=== PATIENT | male | born 1970 | race American Indian/Alaskan Native ===

== ENCOUNTER 2017-02-19 13:22 | Emergency (ER) | payer OTHER ==
[2017-02-19 15:01] LABS: Basophils % (Auto) 0.6 % (0.0-1.8); Eosinophils % (Auto) 4.1 % (0.0-4.3); Hemoglobin 13.6 gm/dl (11.8-15.2); Mean Corpuscular HGB Conc 33 % (32-34); Mean Corpuscular Hemoglobin 29 pg (28-32); Mean Corpuscular Volume 89 fl (84-94); Platelet Count 356 K/mm3 (140-440); Red Blood Count 4.73 M/mm3 (3.65-5.03); Red Cell Distribution Width 14.2 % (13.2-15.2); White Blood Count 10.2 K/mm3 (4.5-11.0)
[2017-02-19 15:29] LABS: Anion Gap 16 mmol/L; BUN/Creatinine Ratio 12; Blood Urea Nitrogen 14 mg/dL (9-20); Carbon Dioxide 23 mmol/L (22-30); Chloride 104.7 mmol/L (98-107); Glucose 114 mg/dL (75-100); Potassium 3.9 mmol/L (3.6-5.0); Sodium 140 mmol/L (137-145)
[2017-02-20] MEDS ORDERED: TORADOL IM ONE (00:54)
[2017-02-20] MEDS ORDERED: NEURONTIN PO ONE (01:09)
[2017-02-20] MEDS ORDERED: ULTRAM PO ONE (01:14)
--- NOTE | 2017-02-20 02:09 | Emergency Department Report ---
ED Extremity Problem HPI - General Chief complaint: Chest Pain Stated complaint: arm pain Time Seen by Provider: 02/20/17 00:43 Source: patient Mode of arrival: Ambulatory Limitations: No Limitations - History of Present Illness Initial comments: 46-year-old with a past medical history of hypertension (medication noncompliance) presents to the hospital complaints of right arm tingling sensation 4-5 days. Pain is constant and rated 8/10 intensity, worse when lying supine and movement in certain positions. Patient states it feels like pins and needles like his arm fell asleep. He also complains of pain/disc to his right upper lateral pectoralis muscle and right side of his neck/trapezius. Symptoms worse with movement. No recent trauma reported. Patient denies shortness of breath, calf pain, or edema. Difficulty sleeping secondary to discomfort. No weakness reported. Pt does perform overhead lifting activities at work Severity scale (0 -10): 8 - Related Data Previous Rx's Medication Instructions Recorded Last Taken Type Amlodipine Besylate [Norvasc] 5 mg PO DAILY #30 tablet 02/20/17 Unknown Rx Gabapentin [Neurontin] 300 mg PO Q8HR #90 capsule 02/20/17 Unknown Rx Ibuprofen [Motrin] 800 mg PO Q8HR PRN #30 tablet 02/20/17 Unknown Rx traMADol [Ultram 50 MG tab] 50 mg PO Q6HR PRN #20 tablet 02/20/17 Unknown Rx Allergies Allergy/AdvReac Type Severity Reaction Status Date / Time No Known Allergies Allergy Unverified 02/19/17 14:24 ED Review of Systems ROS: Stated complaint: ABDOMINAL PAIN Other details as noted in HPI Comment: All other systems reviewed and negative Other: Constitutional: No fevers chills Eyes: No eye pain visual changes ENT: No ear pain or throat pain Neck: As per HPI Respiratory: Denies cough wheezing shortness of breath Cardiovascular: Denies chest pain, palpitations, syncope GI: Denies abdominal pain, nausea, vomiting, diarrhea : Denies dysuria, urinary frequency, or urgency Musculoskeletal: Denies back pain Skin: Denies rash, lesions, erythema Neurologic: Denies headache, weakness Psychiatric: Denies suicidal ideation, hallucinations ED Past Medical Hx - Past Medical History Hx Hypertension: Yes - Surgical History Past Surgical History?: Yes Additional Surgical History: Arm nerve repair, hernia repair, skin graft - Social History Smoking Status: Never Smoker Substance Use Type: None - Medications Home Medications: Home Medications Medication Instructions Recorded Confirmed Last Taken Type Amlodipine Besylate [Norvasc] 5 mg PO DAILY #30 tablet 02/20/17 Unknown Rx Gabapentin [Neurontin] 300 mg PO Q8HR #90 capsule 02/20/17 Unknown Rx Ibuprofen [Motrin] 800 mg PO Q8HR PRN #30 tablet 02/20/17 Unknown Rx traMADol [Ultram 50 MG tab] 50 mg PO Q6HR PRN #20 tablet 02/20/17 Unknown Rx ED Physical Exam - General Limitations: No Limitations - Other Other exam information: General: No limitations, patient is alert in no acute distress Head exam: Atraumatic, normocephalic Eyes exam: Normal appearance, pupils equal reactive to light, extraocular movements intact ENT: Moist mucous membrane, normal oropharynx Neck exam: Normal inspection, full range of motion, no meningismus, no midline tenderness. Mild tenderness along trapezius. Palpable bony protrusion to the left upper chest wall adjacent to the sternum. Patient states this has been present times one year and is nontender Respiratory exam: Clear to auscultation bilateral, no wheezes, rales, crackles Cardiovascular: Normal rate and rhythm, normal heart sounds, pain to right upper lateral pectoralis muscle with movement Abdomen: Soft, nondistended, and nontender, with normal bowel sounds, no rebound, or guarding Extremity: Full range of motion normal inspection no deformity Back: Normal Inspection, full range of motion, no tenderness Neurologic: Alert, oriented x3, cranial nerves intact, decreased sensation to pinprick to distal forearm extending upward to proximal forearm. More proximal arm equal sensation to pinprick. Strength of upper and lower extremities 5/5 in intensity. Sensation to bilateral lower extremities equal bilaterally Psychiatric: normal affect, normal mood Skin: Warm, dry, intact ED Course Vital Signs 02/19/17 02/19/17 02/20/17 14:25 23:28 01:20 Temperature 98.4 F 98.1 F Pulse Rate 87 73 Respiratory 14 18 20 Rate Blood Pressure 138/88 141/65 O2 Sat by Pulse 97 98 Oximetry - Reevaluation(s) Reevaluation #1: 02/20/17 02:09 Patient treated with tramadol, Neurontin, and Toradol - Consultations Consultation #1: 02/20/17 Case discussed with on-call outside sales consultant Dr. Jackman regarding delta wave. Agree with outpatient follow-up ED Medical Decision Making - Lab Data Result diagrams: 02/19/17 14:37 02/19/17 14:37 Lab Results 02/19/17 02/19/17 02/19/17 Range/Units 14:37 14:37 20:25 WBC 10.2 (4.5-11.0) K/mm3 RBC 4.73 (3.65-5.03) M/mm3 Hgb 13.6 (11.8-15.2) gm/dl Hct 42.0 (35.5-45.6) % MCV 89 (84-94) fl MCH 29 (28-32) pg MCHC 33 (32-34) % RDW 14.2 (13.2-15.2) % Plt Count 356 (140-440) K/mm3 Lymph % (Auto) 25.0 (13.4-35.0) % Haskell % (Auto) 5.7 (0.0-7.3) % Eos % (Auto) 4.1 (0.0-4.3) % Baso % (Auto) 0.6 (0.0-1.8) % Lymph # 2.5 (1.2-5.4) K/mm3 Haskell # 0.6 (0.0-0.8) K/mm3 Eos # 0.4 (0.0-0.4) K/mm3 Baso # 0.1 (0.0-0.1) K/mm3 Seg Neutrophils % 64.6 (40.0-70.0) % Seg Neutrophils # 6.6 (1.8-7.7) K/mm3 Sodium 140 (137-145) mmol/L Potassium 3.9 (3.6-5.0) mmol/L Chloride 104.7 (98-107) mmol/L Carbon Dioxide 23 (22-30) mmol/L Anion Gap 16 mmol/L BUN 14 (9-20) mg/dL Creatinine 1.2 (0.8-1.5) mg/dL Estimated GFR > 60 ml/min BUN/Creatinine Ratio 12 % Glucose 114 H (75-100) mg/dL Calcium 10.0 (8.4-10.2) mg/dL Troponin T < 0.010 < 0.010 (0.00-0.029) ng/mL - EKG Data -: EKG Interpreted by Me (delta wave) EKG shows normal: sinus rhythm, axis (22), QRS complexes (133), ST-T waves (ST elevation. Inferolateral T inversion) Rate: normal (83) - EKG Data When compared to previous EKG there are: previous EKG unavailable - Radiology Data Radiology results: image reviewed (cxr pa/lat: naf) - Medical Decision Making When questioned about palpitations he states states he had some mild palpitations on occasion but denies any significant tachycardia. Patient will be encouraged to follow with outside sales consultant regarding delta wave for WPW workup. Suspect the patient is having paresthesias secondary to radicular pain. Medication for radicular pain will be prescribed and outpatient follow-up will be encouraged. - Differential Diagnosis nerve impingement, radiculopathy, MSK pain Critical Care Time: No Critical care attestation.: If time is entered above; I have spent that time in minutes in the direct care of this critically ill patient, excluding procedure time. ED Disposition Clinical Impression: Paresthesia and pain of extremity, WPW (Flijd-Uhnlmrxic-Vqvai syndrome), HTN ( hypertension) Disposition: DC-01 TO HOME OR SELFCARE Is pt being admited?: No Does the pt Need Aspirin: No Condition: Stable Instructions: Paresthesia (ED), Hypertension (ED) Additional Instructions: Take the medication as prescribed. Is very important that you follow with a primary care doctor and a outside sales consultant. Please return if symptoms worsen. Prescriptions: Amlodipine Besylate [Norvasc] 5 mg PO DAILY #30 tablet Gabapentin [Neurontin] 300 mg PO Q8HR #90 capsule Ibuprofen [Motrin] 800 mg PO Q8HR PRN #30 tablet PRN Reason: Pain traMADol [Ultram 50 MG tab] 50 mg PO Q6HR PRN #20 tablet PRN Reason: Pain Referrals: [facility] [Provider Group] - 3-5 Days MEG JACKMAN MD [Staff Physician] - 3-5 Days DEIRDRE CUI MD [Staff Physician] - 3-5 Days Time of Disposition: 02:23
[2017-02-20 02:55] VITALS: BP 135/84
--- NOTE | 2017-02-20 11:22 | XRay Report ---
FINAL REPORT EXAM: XR CHEST ROUTINE 2V HISTORY: r sided cp TECHNIQUE: PA and lateral views of the chest were submitted. FINDINGS: The heart size and mediastinum appear normal. The lungs are clear. Pleural fluid is not seen. The bones and soft tissues do not show any acute changes. IMPRESSION: No active chest disease.
== END 2017-02-20 02:42 | disposition home or self-care (01) ==
LOC: ED 13:22
DX: R20.2 Paresthesia of skin (principal); I45.6 Pre-excitation syndrome; I10 Essential (primary) hypertension
CPT/HCPCS: 36415; 71020; 80048; 84484; 85025; 93005; 93010; 96372; 99284; J1885

== ENCOUNTER 2019-04-11 11:44 | Emergency (ER) | payer SELFPAY ==
[2019-04-11 12:26] VITALS: BP 179/111
== END 2019-04-11 12:30 | disposition left against medical advice (07) ==
LOC: ED 11:44
DX: Z53.21 Procedure and treatment not carried out due to patient leaving prior to being seen by health care provider (principal)